=== PATIENT | male | born 1950 | race Two or more races ===

== ENCOUNTER 2018-08-04 11:00 | Inpatient (IN) | payer OTHER ==
[~2018-08-04] VITALS: Ht 172.7 cm; Wt 72.6 kg
[2018-08-14] MEDS ORDERED: DOCUSATE SODIU100 MG PO (10:14)
[2018-08-14] MEDS ORDERED: PERCOCET 5-3251 EACH PO (10:15)
[2018-08-14] MEDS ORDERED: CLONAZEPAM1 MG PO (10:15)
== END 2018-08-14 17:56 | disposition home or self-care (01) | DRG 454 ==
LOC: RECOVERY 08-13 07:00 → SURH 08-13 08:30 → O/R 08-13 08:30 → SURH 08-13 09:42 → RECOVERY 08-13 13:30 → SURH 08-14 17:56
PROVIDERS: Orthopaedic Surgery Orthopaedic Surgery of the Spine
PROC: 0RG2071 Fusion of 2 or more Cervical Vertebral Joints with Autologous Tissue Substitute, Posterior Approach, Posterior Column, Open Approach (ICD-10-PCS; 2018-08-13)
PROC: 0RT30ZZ Resection of Cervical Vertebral Disc, Open Approach (ICD-10-PCS; 2018-08-13)
PROC: 07DS3ZZ Extraction of Vertebral Bone Marrow, Percutaneous Approach (ICD-10-PCS; 2018-08-13)
PROC: 0RG20A0 Fusion of 2 or more Cervical Vertebral Joints with Interbody Fusion Device, Anterior Approach, Anterior Column, Open Approach (ICD-10-PCS; principal; 2018-08-13 07:00)
DX: M47.12 Other spondylosis with myelopathy, cervical region (principal); M50.021 Cervical disc disorder at C4-C5 level with myelopathy

== ENCOUNTER → 2019-09-01 | Outpatient (CLI) | payer OTHER ==
[~2019-09-01] MED LIST: CLONAZEPAM1 MG PO; DOCUSATE SODIU100 MG PO; PERCOCET 5-3251 EACH PO
== END | disposition home or self-care (01) ==
LOC: RAD 08:40
DX: R07.89 Other chest pain (principal)

== ENCOUNTER 2019-09-10 13:03 | Inpatient (IN) | payer OTHER ==
[~2019-09-10] VITALS: Ht 170.2 cm; Wt 74.8 kg
[~2019-09-10 13:03] MED LIST changes: +NEXIUM 24HR20 M1 PO; +TAMS0.4C PO
[2019-09-16] MEDS ORDERED: MELATONIN3 MG PO (08:34)
[2019-09-16] MEDS ORDERED: COLACE100 MG PO (12:08)
[2019-09-16] MEDS ORDERED: NEURONTIN800 MG PO (12:08)
[2019-09-16] MEDS ORDERED: PERCOCET 5-3251 EACH PO (12:08)
[2019-09-16] MEDS ORDERED: AMOX-CLAV 875-1 EACH PO (12:08)
[2019-09-16] MEDS ORDERED: DIAZEPAM10 MG PO (12:08)
[2019-09-16] MEDS ORDERED: MEDROLPACK PO (12:08)
== END 2019-09-17 11:38 | disposition home or self-care (01) | DRG 460 ==
LOC: ADM 09-11 08:15 → O/R 09-16 05:38 → SURG 09-16 05:38 → EDSTATUS 09-16 08:15 → SURH 09-16 08:15 → ADM 09-16 08:15 → SURG 09-16 13:36 → SURH 09-16 16:00 → SURG 09-16 19:07
PROVIDERS: ADMIT Orthopaedic Surgery Orthopaedic Surgery of the Spine
PROC: 0SG00AJ Fusion of Lumbar Vertebral Joint with Interbody Fusion Device, Posterior Approach, Anterior Column, Open Approach (ICD-10-PCS; 2019-09-16)
PROC: 0ST20ZZ Resection of Lumbar Vertebral Disc, Open Approach (ICD-10-PCS; 2019-09-16)
PROC: 07DS3ZZ Extraction of Vertebral Bone Marrow, Percutaneous Approach (ICD-10-PCS; 2019-09-16)
PROC: 0SG00A0 Fusion of Lumbar Vertebral Joint with Interbody Fusion Device, Anterior Approach, Anterior Column, Open Approach (ICD-10-PCS; principal; 2019-09-16 16:00)
DX: M51.16 Intervertebral disc disorders with radiculopathy, lumbar region (principal); M48.061 Spinal stenosis, lumbar region without neurogenic claudication